=== PATIENT | male | born 1980 | race Caucasian/White ===

== ENCOUNTER 2016-04-13 23:57 | Emergency (ER) | payer OTHER ==
[2016-04-14] MEDS ORDERED: Lidocaine 1% 20 ML MDV ONE (00:13)
[2016-04-14] MEDS ORDERED: Adacel (T-DAP) 0.5 ML VIAL ONE (00:42)
[2016-04-14] MEDS ORDERED: Cephalexin 500 MG CAP ONE (01:09)
--- NOTE | 2016-04-14 02:48 | ERRECORD ---
[facility] HPI HAND (01:09 PMYE) CHIEF COMPLAINT: Patient presents for evaluation of injury to right index finger. HISTORIAN: History provided by patient. MECHANISM OF INJURY: direct blow. LOCATION: Symptoms are localized, most severe to the Right index finger. QUALITY: Pain is sharp in nature. SEVERITY: Maximum severity of symptoms moderate, Currently symptoms are moderate, 36 y/o Male who struck his right index finger with a hammer. TIME COURSE: Sudden onset of symptoms. ASSOCIATED WITH: No associated symptoms. EXACERBATED BY: Patient's condition exacerbated by nothing. ROS (01:12 PMYE) CONSTITUTIONAL: Negative constitutional review of systems, Historian denies chills, denies fatigue, denies fever. EYES: Negative eye review of systems, Historian denies eye pain, denies eye redness. ENT: Negative ears, nose, throat review of systems, Historian denies dysphasia, denies otalgia, denies sore throat. CARDIOVASCULAR: Negative cardiovascular review of systems, Historian denies chest pain, denies dyspnea on exertion, denies syncope. RESPIRATORY: Negative respiratory review of systems, Historian denies cough, denies shortness of breath, denies wheezing. GI: Negative gastrointestinal review of systems, Historian denies abdominal pain, denies nausea, denies vomiting. MUSCULOSKELETAL: Negative musculoskeletal review of systems, Historian denies back pain, denies neck pain. Right finger pain. SKIN: Negative skin review of systems, Historian denies rash. NEUROLOGIC: Negative neurologic review of systems, Historian denies confusion, denies headache, denies paresthesias. PSYCHIATRIC: Negative psychiatric review of systems, Historian denies alcohol abuse, denies drug abuse, denies homicidal ideation, denies suicidal ideation. PAST MEDICAL HISTORY (00:09 [facility]) MEDICAL HISTORY: No past medical history, Flu vaccine not up to date, Tetanus not up to date. MALE SURGICAL HISTORY: Patient has no surgical history. PSYCHIATRIC HISTORY: No previous psychiatric history. SOCIAL HISTORY: Patient drinks socially, once a month, Patient denies drug use, Patient has no smoking history, Lives at home, with family, LIVES IN [place]. IN [facility] FOR WORK. KNOWN ALLERGIES No Known Drug Allergies CURRENT MEDICATIONS (00:05 [facility]) None &a-1R&a+25V*p+0X*h0502F*c152B*c15G*c2P*p-0X&a-25V&a+1RName: Luis Felipe Lozada : M36 MedRec: [id number] AcctNum: [id number] Prepared: Tulio Apr 14, 2016 01:45 by Interface Page 1 of 3 pMD [facility] EMERGENCY RECORD VITAL SIGNS (00:03 [facility]) VITAL SIGNS: BP: 148/98, Pulse: 103, Resp: 16, Temp: 98.4 (Oral), Pain: 8 (Constant), O2 sat: 97 on Room Air, Time: 04/14/2016 00:03. PHYSICAL EXAM CONSTITUTIONAL: Vital signs reviewed, Patient afebrile, Pulse normal, Blood pressure normal, Respiratory rate normal. (01:12 PMYE) HEAD: Head exam normal, Head exam included findings of head atraumatic, normocephalic. (01:12 PMYE) EYES: Eye exam normal, Eye exam included findings of eyelids normal to inspection, Pupils equally round and reactive to light, Extraocular muscles intact. (01:12 PMYE) ENT: ENT exam normal, Pharynx exam normal, Uvula exam normal, Tonsil exam normal. (01:12 PMYE) NECK: Neck exam normal, Neck exam included findings of normal range of motion, Trachea midline. (01:12 PMYE) RESPIRATORY CHEST: Respiratory and chest exam normal, No wheezing, No rales, No rhonchi. (01:12 PMYE) CARDIOVASCULAR: Cardiovascular assessment normal, Cardiovascular exam included findings of heart rate regular rate and rhythm, Heart sounds normal. (01:12 PMYE) ABDOMEN MALE: Abdominal exam normal, Abdominal exam included findings of abdomen nontender, Bowel sounds normal. (01:12 PMYE) BACK: Back exam normal. (01:12 PMYE) UPPER EXTREMITY: Right index finger at base of nail matrix is lacerated 3 cm. + subungual hematoma. (01:13 PMYE) NEURO: Neuro exam normal, Neuro exam findings include patient oriented to person, place and time, [place] coma scale 15, Speech normal. (01:12 PMYE) SKIN: Skin exam included findings of skin warm, dry, and normal in color. (01:12 PMYE) PSYCHIATRIC: Psychiatric exam included findings of patient oriented to person place and time, Normal affect. (01:12 PMYE) MEDICATION ADMINISTRATION SUMMARY Drug Name: Keflex, Dose Ordered: 500 mg, Route: Oral, Status: Given, Time: 01:12 04/14/2016, Drug Name: Adacel(Tdap Adolesn/Adult)(PF), Dose Ordered: 0.5 mL, Route: Intramuscular, Status: Given, Time: 00:53 04/14/2016, Detailed record available in Medication Service section. DOCTOR NOTES (01:19 PMYE) TEXT: Laceration repaired and subungual hematoma released. X-ray shows distal tuft fx. Will buzz splint and provide Keflex. Will f/u w/ PCP. PROBLEM LIST No recorded problems &a-1R&a+25V*p+0X*d6658O*c152B*c15G*c2P*p-0X&a-25V&a+1RName: Luis Felipe Lozada : M36 MedRec: [id number] AcctNum: [id number] Prepared: WedApr 14, 2016 01:45 by Interface Page 2 of 3 pMD [facility] EMERGENCY RECORD DIAGNOSIS (01:21 PMYE) FINAL: PRIMARY: laceration of finger, ADDITIONAL: fracture of distal phalynx, subungual hematoma. PRESCRIPTION (01:21 PMYE) Keflex: CAPSULE : 500 mg : ORAL : Quantity: 500 Unit: mg Route: ORAL Schedule: every 6 hours Dispense: 28 Unit: tab(s) May substitute. Refills: No Refills . NOTES: No Refills. DISPOSITION PATIENT: Disposition Type: Discharge, Disposition: *Discharge Home. (01:21 PMYE) Patient left the department. (01:41 [facility]) Isaac: [facility]=NIAT Rodriguez Lacey PMYE=DO Guerra Paul &a-1R&a+25V*p+0X*z1724K*c152B*c15G*c2P*p-0X&a-25V&a+1RName: Luis Felipe Lozada : M36 MedRec: [id number] AcctNum: [id number] Prepared: WedApr 14, 2016 01:45 by Interface Page 3 of 3 pMD MTDD
--- NOTE | 2016-04-14 02:51 | PICIS ---
[facility] EMERGENCY RECORD TRIAGE (00:05 LK) TRIAGE NOTES: HIT RIGHT POINTER FINGER WITH A HAMMER. (00:05 [facility]) PATIENT: NAME: Luis Felipe Lozada, AGE: 36, GENDER: male, : WedMar 29, 1980, TIME OF GREET: WedApr 13, 2016 23:58, ECODE BILLING MAP: [facility] ER, KG WEIGHT: 89 (est.), PHONE: [phone], , , PERSON ID: [id number], PCP: NONE. (00:05 LK) Zip Code: [id number]. (01:31) COMPLAINT: CUT ON FINGER. (00:05 LK) ADMISSION: URGENCY: 4 Non Urgent, ADMISSION SOURCE: Work, TRANSPORT: CAR, BED: ER -03. (00:05 LK) ASSESSMENT: Symptoms began 04/13/2016 23:30. (00:09 [facility]) PAIN: Patient complains of pain described as, throbbing, on a scale 0-10 patient rates pain as 8, Location RIGHT 2ND DIGIT/NAIL, Pain is constant, Onset was 04/13/2016 23:30. (00:09 LK) IMMUNIZATIONS: Flu vaccine not up to date, Tetanus not up to date, Pneumococcal vaccine not up to date. (00:09 LK) SIRS SCORING: Heart Rate 55-109 (0), Temp range 96.8-101.1 (0), respiratory rate 12-24 (0), Mental Status altered: no (0). (00:09 LK) TRIAGE SCREENING: Patient denies suicidal ideation, Patient denies presence of domestic violence. (00:09 [facility]) TREATMENTS IN PROGRESS: Treatments given Prehospital: NONE. (00:09 LK) PROVIDERS: TRIAGE NURSE: Beti Rodriguez RN. (00:05 [facility]) VITAL SIGNS: BP 148/98, Pulse 103, Resp 16, Temp 98.4, (Oral), Pain 8, (Constant), O2 Sat 97, on Room Air, Time 04/14/2016 00:03. (00:03 LK) KNOWN ALLERGIES No Known Drug Allergies CURRENT MEDICATIONS (00:05 LK) None VITAL SIGNS (00:03 LK) VITAL SIGNS: BP: 148/98, Pulse: 103, Resp: 16, Temp: 98.4 (Oral), Pain: 8 (Constant), O2 sat: 97 on Room Air, Time: 04/14/2016 00:03. NURSING ASSESSMENT: SKIN (00:10 [facility]) CONSTITUTIONAL: Complex assessment performed, Patient arrives ambulatory, Gait steady, History obtained from patient, Patient cooperative, Patient alert, Oriented to person, place and time, Skin warm, Skin dry, Skin normal in color, Mucous membranes pink, Mucous membranes moist, Patient is well-groomed, Patient complains of RIGHT FINGER LAC (2ND DIGIT), HIT FINGER WITH HAMMER. PAIN: throbbing pain, RIGHT 2ND DIGIT, Onset of pain 04/13/2016 23:30, constant, on a scale 0-10 &a-1R&a+25V*p+0X*c5073W*c152B*c15G*c2P*p-0X&a-25V&a+1RName: Luis Felipe Lozada : M36 MedRec: [id number] AcctNum: [id number] Prepared: lora Apr 14, 2016 01:51 by Interface Page 1 of 6 pMD [facility] EMERGENCY RECORD patient rates pain as 8. SKIN: Skin assessment findings include skin warm, Skin dry, Skin normal in color, Inspection findings include laceration, to RIGHT 2ND DIGIT, length (cm) APPROX 1 CM, bleeding controlled, Inspection findings include signs of trauma. NURSING PROCEDURE: BEDSIDE RADIOLOGY (00:43 ER) PATIENT IDENTIFIER: Patient actively involved in identification process. BEDSIDE RADIOLOGY: Bedside radiology performed by BOY, Portable x-ray performed, of the right hand. SAFETY: Side rails up, Cart/Stretcher in lowest position, Family at bedside, Call light within reach, Hospital ID band on. NURSING PROCEDURE: SUBUNGUAL HEMATOMA (01:14 PMYE) PATIENT IDENTIFIER: Patient actively involved in identification process. SUBUNGUAL HEMATOMA: Subungual hematoma release indicated for relief of pain and pressure, Subungual hematoma released from the second finger, on the right hand. FOLLOW-UP: After procedure, on a scale 0-10 patient rates pain as 1. NOTES: Patient tolerated procedure well. NURSING PROCEDURE: WOUND CARE (00:50 [facility]) PATIENT IDENTIFIER: Patient actively involved in identification process, Patient's identity verified by patient stating name, Patient's identity verified by patient stating date, Patient's identity verified by hospital ID krishna. TIMEOUT: Prior to procedure, correct patient verified by, Correct procedure verified, Correct site verified, Correct equipment utilized, Physician performing procedure Dr. ANÍBAL MD, Witnessed by NITA JORDAN. WOUND CARE: Wound care indicated for wound debridement and cleansing, Wound care indicated for preparing wound for repair, Wound care indicated to promote healing, Wound site: RIGHT 2ND DIGIT, Cause of wound: HAMMER, Local infiltration with, 1% lidocaine with epinephrine, 10 mL used, Wound irrigated with 250 mL of normal saline, by MD ANÍBAL, Wound cleansed with Betadine, by MD ANÍBAL, Wound repaired with sutures, by MD ANÍBAL, using 1 pack of suture, Cautery utilized, Last tetanus shot received less than 5 years ago, Notes: TDap given today in ED. FOLLOW-UP: After procedure, simple dressing applied, using telfa pad dressing, WRAPPED WITH TUBE GAUZE. BUZZ TAPED TO 3RD DIGIT., After procedure, capillary refill less than 2 seconds, After procedure, distal circulation intact, After procedure, distal motor intact, After procedure, distal sensation intact, After procedure, distal pulses present. ORDER DETAILS &a-1R&a+25V*p+0X*p0298K*c152B*c15G*c2P*p-0X&a-25V&a+1RName: Luis Felipe Lozada : M36 MedRec: [id number] AcctNum: [id number] Prepared: lora Apr 14, 2016 01:51 by Interface Page 2 of 6 pMD [facility] EMERGENCY RECORD Order Name: chart element #1, Status: Active, Time: 00:50 04/14/2016, User: System, - Ordered for: DO Guerra Paul, - Entered by: NITA Rodriguez, Beti - Tulio Apr 14, 2016 00:50, - Quantity: 1, Order Name: chart element #4, Status: Active, Time: 00:50 04/14/2016, User: System, - Ordered for: DO Guerra Paul, - Entered by: NITA Rodriguez Lacey - WedApr 14, 2016 00:50, - Quantity: 1, Order Name: XR Finger(s) Rt Min 2 View, Status: Active, Time: 00:37 04/14/2016, User: DAVE, - Ordered for: DO Guerra Paul, - Entered by: DO Guerra Paul - WedApr 14, 2016 00:37, - Quantity: 1. MEDICATION ADMINISTRATION SUMMARY Drug Name: Keflex, Dose Ordered: 500 mg, Route: Oral, Status: Given, Time: 01:12 04/14/2016, Drug Name: Adacel(Tdap Adolesn/Adult)(PF), Dose Ordered: 0.5 mL, Route: Intramuscular, Status: Given, Time: 00:53 04/14/2016, Detailed record available in Medication Service section. MEDICATION SERVICE Adacel(Tdap Adolesn/Adult)(PF): Order: Adacel(Tdap Adolesn/Adult)(PF) (diphth,pertuss(acell),tet vac/preservative free) - Dose: 0.5 mL : Intramuscular Schedule: Now Ordered by: Kirk Guerra DO Entered by: Kirk Guerra DO WedApr 14, 2016 00:38 , Acknowledged by: Beti Rodriguez RN WedApr 14, 2016 00:40 Documented as given by: Beti Rodriguez RN lora Apr 14, 2016 00:53 Patient, Medication, Dose, Route and Time verified prior to administration. IM immunization, Amount given: 0.5ML, Medication administered to left deltoid, Vaccination information sheet given to patient, administrative assistant front desk: ADACEL, lot number: [id number], expiration: 02/12/2018, Patient appears Awake and alert- acceptable, Correct patient, time, route, dose and medication confirmed prior to administration, Patient advised of actions and side-effects prior to administration, Allergies confirmed and medications reviewed prior to administration. Keflex: Order: Keflex (cephalexin monohydrate) - Dose: 500 mg : Oral Schedule: Now Ordered by: Kirk Guerra DO Entered by: Kirk Guerra DO WedApr 14, 2016 01:08 , Acknowledged by: Beti Rodriguez RN lora Apr 14, 2016 01:09 Documented as given by: Beti Rodriguez RN lora Apr 14, 2016 01:12 Patient, Medication, Dose, Route and Time verified prior to &a-1R&a+25V*p+0X*g1671L*c152B*c15G*c2P*p-0X&a-25V&a+1RName: Luis Felipe Lozada : M36 MedRec: [id number] AcctNum: [id number] Prepared: WedApr 14, 2016 01:51 by Interface Page 3 of 6 pMD [facility] EMERGENCY RECORD administration. Amount given: 500MG, Site: Medication administered P.O., Patient appears Awake and alert- acceptable, Correct patient, time, route, dose and medication confirmed prior to administration, Patient advised of actions and side-effects prior to administration, Allergies confirmed and medications reviewed prior to administration. HPI HAND (01:09 PMYE) CHIEF COMPLAINT: Patient presents for evaluation of injury to right index finger. HISTORIAN: History provided by patient. MECHANISM OF INJURY: direct blow. LOCATION: Symptoms are localized, most severe to the Right index finger. QUALITY: Pain is sharp in nature. SEVERITY: Maximum severity of symptoms moderate, Currently symptoms are moderate, 36 y/o Male who struck his right index finger with a hammer. TIME COURSE: Sudden onset of symptoms. ASSOCIATED WITH: No associated symptoms. EXACERBATED BY: Patient's condition exacerbated by nothing. ROS (01:12 PMYE) CONSTITUTIONAL: Negative constitutional review of systems, Historian denies chills, denies fatigue, denies fever. EYES: Negative eye review of systems, Historian denies eye pain, denies eye redness. ENT: Negative ears, nose, throat review of systems, Historian denies dysphasia, denies otalgia, denies sore throat. CARDIOVASCULAR: Negative cardiovascular review of systems, Historian denies chest pain, denies dyspnea on exertion, denies syncope. RESPIRATORY: Negative respiratory review of systems, Historian denies cough, denies shortness of breath, denies wheezing. GI: Negative gastrointestinal review of systems, Historian denies abdominal pain, denies nausea, denies vomiting. MUSCULOSKELETAL: Negative musculoskeletal review of systems, Historian denies back pain, denies neck pain. Right finger pain. SKIN: Negative skin review of systems, Historian denies rash. NEUROLOGIC: Negative neurologic review of systems, Historian denies confusion, denies headache, denies paresthesias. PSYCHIATRIC: Negative psychiatric review of systems, Historian denies alcohol abuse, denies drug abuse, denies homicidal ideation, denies suicidal ideation. PAST MEDICAL HISTORY (00:09 [facility]) MEDICAL HISTORY: No past medical history, Flu vaccine not up to date, Tetanus not up to date. MALE SURGICAL HISTORY: Patient has no surgical history. PSYCHIATRIC HISTORY: No previous psychiatric history. SOCIAL HISTORY: Patient drinks socially, once a month, Patient denies drug use, Patient has no smoking history, Lives at home, with &a-1R&a+25V*p+0X*p4746Q*c152B*c15G*c2P*p-0X&a-25V&a+1RName: Luis Felipe Lozada : M36 MedRec: [id number] AcctNum: [id number] Prepared: Tulio Apr 14, 2016 01:51 by Interface Page 4 of 6 pMD [facility] EMERGENCY RECORD family, LIVES IN [facility]. IN [facility] FOR [facility]. PHYSICAL EXAM CONSTITUTIONAL: Vital signs reviewed, Patient afebrile, Pulse normal, Blood pressure normal, Respiratory rate normal. (01:12 PMYE) HEAD: Head exam normal, Head exam included findings of head atraumatic, normocephalic. (01:12 PMYE) EYES: Eye exam normal, Eye exam included findings of eyelids normal to inspection, Pupils equally round and reactive to light, Extraocular muscles intact. (01:12 PMYE) ENT: ENT exam normal, Pharynx exam normal, Uvula exam normal, Tonsil exam normal. (01:12 PMYE) NECK: Neck exam normal, Neck exam included findings of normal range of motion, Trachea midline. (01:12 PMYE) RESPIRATORY CHEST: Respiratory and chest exam normal, No wheezing, No rales, No rhonchi. (01:12 PMYE) CARDIOVASCULAR: Cardiovascular assessment normal, Cardiovascular exam included findings of heart rate regular rate and rhythm, Heart sounds normal. (01:12 PMYE) ABDOMEN MALE: Abdominal exam normal, Abdominal exam included findings of abdomen nontender, Bowel sounds normal. (01:12 PMYE) BACK: Back exam normal. (01:12 PMYE) UPPER EXTREMITY: Right index finger at base of nail matrix is lacerated 3 cm. + subungual hematoma. (01:13 PMYE) NEURO: Neuro exam normal, Neuro exam findings include patient oriented to person, place and time, [place] coma scale 15, Speech normal. (01:12 PMYE) SKIN: Skin exam included findings of skin warm, dry, and normal in color. (01:12 PMYE) PSYCHIATRIC: Psychiatric exam included findings of patient oriented to person place and time, Normal affect. (01:12 PMYE) EVENTS TRANSFER: Triage to Emergency Emergency Room -03. (WedApr 14, 2016 00:05 [facility]) Removed from Emergency Emergency Room -03. (01:41 [facility]) DOCTOR NOTES (01:19 PMYE) TEXT: Laceration repaired and subungual hematoma released. X-ray shows distal tuft fx. Will buzz splint and provide Keflex. Will f/u w/ PCP. LACERATION-SINGLE REPAIR (01:17 PMYE) TIMEOUT: Side and/or site verified, Patient identification confirmed, Sterile procedures observed. LACERATION REPAIR: Side and/or site verified, Sterile procedures observed, Verbal consent obtained, Digital block with, 1% LIDOCAINE without epinephrine, 3mL, Patient prepped and draped in usual sterile fashion, Wound irrigated with normal saline, Simple repair of laceration, to the hand, right index finger, total length 3.0 cm, After procedure, wound well approximated, antibiotic ointment &a-1R&a+25V*p+0X*s8788H*c152B*c15G*c2P*p-0X&a-25V&a+1RName: Luis Felipe Lozada : M36 MedRec: [id number] AcctNum: [id number] Prepared: WedApr 14, 2016 01:51 by Interface Page 5 of 6 pMD [facility] EMERGENCY RECORD applied, dressing applied, Complications include, Tetanus status not up to date, tetanus immunization ordered. PROBLEM LIST No recorded problems DIAGNOSIS (01:21 PMYE) FINAL: PRIMARY: laceration of finger, ADDITIONAL: fracture of distal phalynx, subungual hematoma. DISPOSITION PATIENT: Disposition Type: Discharge, Disposition: *Discharge Home. (01:21 PMYE) Patient left the department. (01:41 [facility]) INSTRUCTION (01:22 PMYE) DISCHARGE: FINGER LACERATION, SUBUNGUAL HEMATOMA, FINGER FRACTURE OPEN. FOLLOWUP: Follow up with Primary Care Physician in 1-2 days. SPECIAL: Follow-up with your PCP Have your sutures removed in 10 days time. PRESCRIPTION (01:21 PMYE) Keflex: CAPSULE : 500 mg : ORAL : Quantity: 500 Unit: mg Route: ORAL Schedule: every 6 hours Dispense: 28 Unit: tab(s) May substitute. Refills: No Refills . NOTES: No Refills. IMAGING TETANUS CONSENT: Image captured from scanner. (00:55 [facility]) *DISCHARGE INSTRUCTIONS RECEIPT: Image captured from scanner. (01:41 [facility]) *SUPPLY CHARGE SHEET: Image captured from scanner. (01:41 [facility]) ADMIN (01:22 PMYE) DIGITAL SIGNATURE: DO Guerra Paul. Isaac: TAMIKA=VINCE Gallagher Kayce [facility]=NITA Rodriguez Lacey PMYE=DO Guerra Paul &a-1R&a+25V*p+0X*h6689A*c152B*c15G*c2P*p-0X&a-25V&a+1RName: Luis Felipe Lozada : M36 MedRec: [id number] AcctNum: [id number] Prepared: Tulio Apr 14, 2016 01:51 by Interface Page 6 of 6 pMD MTDD
--- NOTE | 2016-04-14 09:13 | RAD ---
THREE VIEW RIGHT INDEX DIGIT: Indication: Crush injury. FINDINGS: There is a comminuted tuft fracture of the distal phalanx of the index digit. IMPRESSION: Comminuted tuft fracture of the index digit with overlying soft tissue swelling. POS: SIMIN
== END 2016-04-14 01:40 | disposition home or self-care (01) ==
LOC: NAV ERS 23:57
DX: S62.630A Displaced fracture of distal phalanx of right index finger, initial encounter for closed fracture (principal); S61.210A Laceration without foreign body of right index finger without damage to nail, initial encounter; Z23 Encounter for immunization; W22.8XXA Striking against or struck by other objects, initial encounter
CPT/HCPCS: 12002; 90471; 90715; 99001; J2001